=== PATIENT | male | born 1960 ===

== ENCOUNTER 2021-09-03 06:36 | Inpatient (IN) ==
[2021-09-03] MEDS ORDERED: HEPARIN 5,000 UNIT/1 ML VIAL IV ONE (06:59)
[2021-09-03] MEDS ORDERED: ASPIRIN 325 MG TABLET PO STA (06:59)
[2021-09-03] MEDS ORDERED: TICAGRELOR 90 MG TABLET PO STA (06:59)
[2021-09-03] MEDS ORDERED: ASPIRIN 325 MG TABLET ONE (07:01)
[2021-09-03] MEDS ORDERED: HEPARIN 5,000 UNIT/1 ML VIAL ONE ×3 (07:01→08:02)
[2021-09-03] MEDS ORDERED: NITROGLYCERIN SL 0.4 MG TABLET SL ONE (07:23)
[2021-09-03] MEDS ORDERED: METOPROLOL TARTRATE 5 MG/5 ML VIAL IV ONE (07:26)
[2021-09-03] MEDS ORDERED: NITROGLYCERIN 2% OINT 1 INCH/GM PACK TOP ONE (07:29)
[2021-09-03] MEDS ORDERED: ONDANSETRON 4 MG/2 ML VIAL ONE (07:29)
[2021-09-03] MEDS ORDERED: HEPARIN/NACL 0.9% 2 UNITS/ML 3,000 UNIT/1,500 ML BAG IV ONE (07:33)
[2021-09-03] MEDS ORDERED: LIDOCAINE 1% 20 ML VIAL ONE (07:33)
[2021-09-03] MEDS ORDERED: NITROGLYCERIN DRIP 50 MG/250 ML BOTTLE IV ONE (07:34)
[2021-09-03] MEDS ORDERED: MIDAZOLAM 2 MG/2 ML VIAL ONE (07:34)
[2021-09-03] MEDS ORDERED: fentaNYL 100 MCG/2 ML VIAL ONE (07:34)
[2021-09-03 07:47] LABS: Calcium 9.3 MG/DL (8.5-10.1); Osmolality,Calculated 276.5 MOS/KG (273-304); Potassium 3.8 MMOL/L (3.5-5.1)
[2021-09-03] MEDS ORDERED: METOPROLOL TARTRATE 5 MG/5 ML VIAL IV STA (07:49)
[2021-09-03] MEDS ORDERED: NITROGLYCERIN SL 0.4 MG TABLET SL STA (07:49)
[2021-09-03] MEDS ORDERED: ONDANSETRON 4 MG/2 ML VIAL IV STA (07:49)
[2021-09-03] MEDS ORDERED: NITROGLYCERIN 2% OINT 1 INCH/GM PACK TOP STA (07:49)
[2021-09-03] MEDS ORDERED: DOCUSATE SODIUM 100 MG CAPSULE PO PRN (07:54)
[2021-09-03] MEDS ORDERED: ONDANSETRON 4 MG/2 ML VIAL IV PRN (07:54)
[2021-09-03] MEDS ORDERED: ALUMINUM/MAGNES/SIMETH MAX STR 30 ML UDCUP PO PRN (07:54)
[2021-09-03] MEDS ORDERED: ACETAMINOPHEN 325 MG TABLET PO PRN (07:54)
[2021-09-03] MEDS ORDERED: EPTIFIBATIDE IV ONE (07:56)
[2021-09-03] MEDS ORDERED: NITROPRUSSIDE 50 MG/2 ML VIAL ONE (07:59)
[2021-09-03] MEDS ORDERED: SODIUM CHLORIDE 0.45% 1,000 ML IV SCH (08:00)
[2021-09-03 08:15] LABS: Risk Ratio 2.82; VLDL Cholesterol 14.6 MG/DL
[2021-09-03] MEDS ORDERED: EPTIFIBATIDE 20,000 MCG/10 ML VIAL ONE (08:33)
[2021-09-03] MEDS: EPTIFIBATIDE 75 MG/100 ML BOTTLE IV SCH ×3 (09:35→16:31)
[2021-09-03 09:37] VITALS: BP 119/87
[2021-09-03] MEDS: METOPROLOL SUCCINATE XL 25 MG TABLET PO SCH (09:40)
[2021-09-03] MEDS: PANTOPRAZOLE 40 MG TABLET PO SCH (09:40)
[2021-09-03 10:04] LABS: Basophils % 0.1 % (0.0-0.8); Hematocrit 43.4 VOL% (42.0-52.0); Hemoglobin 14.2 GM/DL (14.0-18.0); Immature Granulocytes % 0.5 %; Immature Granulocytes Absolute 0.04 #; Lymphocytes # 0.7 10*3/uL (1.4-4.0); Mean Corpuscular HGB Conc 32.7 GM/DL (32-36); Mean Corpuscular Volume 91.2 FL (87-102); Mean Platelet Volume 9.8 FL (9.6-12.0); Monocytes % 5.2 % (1.7-12.7); Neutrophils % 85.2 % (38.7-73.9); Platelet Count 326 T/CUMM (130-400); Red Blood Count 4.76 MC/CUMM (3.8-5.5); Red Cell Distribution Width 13.3 % (9.3-17.3); White Blood Count 8.2 T/CUMM (4-12)
[2021-09-03 18:25] LABS: Barbiturates Screen,Urine Negative (Negative); Benzodiazepines Screen,Urine Positive (Negative); Cannabinoid Screen,Urine Negative (Negative); Opiate Screen,Urine Negative (Negative); Phencyclidine Screen,Urine Negative (Negative)
[2021-09-03] MEDS: ROSUVASTATIN 20 MG TABLET PO SCH (20:44)
[2021-09-03] MEDS: TICAGRELOR 90 MG TABLET PO SCH (20:44)
[2021-09-04 03:59] LABS: Basophils % 0.1 % (0.0-0.8); Eosinophils % 0.1 % (0.00-10.9); Hematocrit 37.3 VOL% (42.0-52.0); Hemoglobin 12.4 GM/DL (14.0-18.0); Immature Granulocytes % 0.5 %; Immature Granulocytes Absolute 0.04 #; Lymphocytes # 1.4 10*3/uL (1.4-4.0); Lymphocytes % 15.7 % (21.2-54.2); Mean Corpuscular HGB Conc 33.2 GM/DL (32-36); Mean Corpuscular Volume 88.8 FL (87-102); Mean Platelet Volume 8.7 FL (9.6-12.0); Monocytes % 12.2 % (1.7-12.7); Neutrophils % 71.4 % (38.7-73.9); Platelet Count 323 T/CUMM (130-400); Red Cell Distribution Width 13.5 % (9.3-17.3); White Blood Count 8.9 T/CUMM (4-12)
[2021-09-04 04:17] LABS: Osmolality,Calculated 263.4 MOS/KG (273-304); Potassium 3.8 MMOL/L (3.5-5.1)
[2021-09-04] MEDS: METOPROLOL SUCCINATE XL 25 MG TABLET PO SCH (08:40)
[2021-09-04] MEDS: ASPIRIN EC 81 MG TABLET PO SCH (08:40)
[2021-09-04] MEDS: TICAGRELOR 90 MG TABLET PO SCH ×2 (08:40→20:01)
[2021-09-04] MEDS: PANTOPRAZOLE 40 MG TABLET PO SCH (08:40)
[2021-09-04] MEDS ORDERED: NITROGLYCERIN SL 0.4 MG TABLET SL PRN (09:49)
[2021-09-04] MEDS: ROSUVASTATIN 20 MG TABLET PO SCH (20:01)
[2021-09-05 03:23] LABS: Basophils % 0.2 % (0.0-0.8); Eosinophils % 0.2 % (0.00-10.9); Hematocrit 41.2 VOL% (42.0-52.0); Hemoglobin 13.3 GM/DL (14.0-18.0); Immature Granulocytes % 0.6 %; Immature Granulocytes Absolute 0.04 #; Lymphocytes # 1.8 10*3/uL (1.4-4.0); Lymphocytes % 27.1 % (21.2-54.2); Mean Corpuscular HGB Conc 32.3 GM/DL (32-36); Mean Corpuscular Volume 90.5 FL (87-102); Mean Platelet Volume 8.5 FL (9.6-12.0); Monocytes % 13.8 % (1.7-12.7); Neutrophils % 58.1 % (38.7-73.9); Platelet Count 319 T/CUMM (130-400); Red Blood Count 4.55 MC/CUMM (3.8-5.5); Red Cell Distribution Width 13.6 % (9.3-17.3); White Blood Count 6.5 T/CUMM (4-12)
[2021-09-05 03:54] LABS: Calcium 9.3 MG/DL (8.5-10.1); Potassium 3.6 MMOL/L (3.5-5.1)
[2021-09-05] MEDS: ASPIRIN EC 81 MG TABLET PO SCH (09:28)
[2021-09-05] MEDS: TICAGRELOR 90 MG TABLET PO SCH (09:28)
[2021-09-05] MEDS: PANTOPRAZOLE 40 MG TABLET PO SCH (09:28)
[2021-09-05] MEDS: METOPROLOL SUCCINATE XL 25 MG TABLET PO SCH (09:28)
== END 2021-09-05 12:10 | disposition home or self-care (01) | DRG 247 ==
LOC: N.ED 06:36 → N.EDINP 07:35 → N.CC 08:38
PROVIDERS: ADMIT Internal Medicine Cardiovascular Disease; ATTEND Internal Medicine Cardiovascular Disease
PROC: CLCCHCL (ICD-10-PCS; 2021-09-03 07:45)